=== PATIENT | male | born 1950 | race Caucasian/White ===

== ENCOUNTER 2017-03-06 08:54 | Day surgery (SDC) | payer MEDICARE, BC ==
[~2017-03-06 08:54] MED LIST: ACETAMINOPHEN 325 MG TABLET PO PRN; ACETYLCHOLINE CHLORIDE 20 DROP KIT IO PRN; BUPIVACAINE HCL/PF 30 ML VIAL IJ PRN; CYCLOPENTOLATE HCL 20 DROP BTL LEFTEYE PRN; DEXTROSE 5%-0.5 NORMAL SALINE 1,000 ML IV PRN; EPINEPHrine 1 MG/ML AMPUL IO PRN; HYALURONATE SODIUM 0.4 ML DISP.SYRIN IO PRN; HYALURONATE SODIUM 0.85 ML DISP.SYRIN IO PRN; LIDOCAINE HCL/PF 200 MG/5 ML AMPUL TP PRN; LIDOCAINE HCL/PF 5 ML VIAL IO PRN; NORMAL SALINE 3 ML BOX IV PRN; TETRACAINE HCL 150 DROP BTL OP PRN
--- OUTSIDE RECORDS SUMMARY | 2017-03-06 08:58 | XMS REPORT | Summary of Care ---
:1950 Author Organization [facility] Address [address] [place] [address] Care Team Providers Name Role Phone Orion Delvalle Primary Care Physician Encounter Date(s): 01/07/16 - 01/07/16 [facility] [address] White, [address] [facility] [place], [place] [address] Discharge Diagnosis: Arthritis, rheumatoid Discharge Disposition: Discharged to Home or Self Care Attending Physician: Paulo Boone MD Referring Physician: Orion Delvalle MD Vital Signs Most recent to oldest [Reference Range]: 1 Peripheral Pulse Rate [60-100 bpm] 95 bpm (01/07/16 2:53 PM) Blood Pressure [90-130/60-90 mmHg] 152/70mmHg *HI* (01/07/16 2:53 PM) Mean Arterial Pressure, Cuff 97 mmHg (01/07/16 2:53 PM) Most recent to oldest [Reference Range]: 1 Height/Length Measured 182.88 cm (01/07/16 2:53 PM) Weight Dosing 122.00 kg1 (01/07/16 2:55 PM) Weight Measured 122 kg (01/07/16 2:53 PM) BSA Measured 2.42 m2 (01/07/16 2:53 PM) Body Mass Index Measured 36.48 kg/m2 (01/07/16 2:53 PM) 1Result Comment: This result was because the dosing weight was either not entered or it is>30 days old. This result is based off: Weight Measured January 07, 2016 14:53:00 CDT by Marilyn Peralta Problem List No data available for this section Allergies, Adverse Reactions, Alerts No Known Allergies Medications aspirin 81 mg oral tablet 1 tab(s), Oral, Daily, # 90 tab(s), 0 Refill(s), Start Date: 08/03/15 13:22:00 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 Start Date: 08/03/15 Status: Orderedfolic acid 1 mg oral tablet 1 tab(s), Oral, Daily, # 14 tab(s), 1 Refill(s), Start Date: 01/20/16 15:36:26 CDT, Pharmacy: [place], [place] Start Date: 01/20/16 Status: Orderedfolic acid 1 mg oral tablet 1 tab(s), Oral, Daily, # 90 tab(s), 3 Refill(s), Start Date: 01/08/16 9:29:44 CDT, Pharmacy: [facility] Start Date: 01/08/16 Status: Orderedfolic acid 1 mg oral tablet 1 tab(s), Oral, Daily, # 30 tab(s), 11 Refill(s), 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: 09/07/15 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:00 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, 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: [place], [place] Start Date: 09/07/15 Stop Date: 01/07/16 Status: Completedfolic acid 1 mg oral tablet 1 tab(s), Oral, Daily, # 14 tab(s), 0 Refill(s), Start Date: 01/07/16 15:08:49 CDT, Pharmacy: [place] Start Date: 01/07/16 Stop Date: 01/20/16 Status: Completedfolic acid 1 mg oral tablet 1 tab(s), Oral, Daily, # 90 tab(s), 3 Refill(s), Start Date: 01/07/16 15:20:00 CDT, Pharmacy: [facility] Start Date: 01/07/16 Stop Date: 01/08/16 Status: CompletedHYDROcodone-acetaminophen 7.5 mg-325 mg oral tablet 1 tab(s), Oral, q4hr, PRN for pain, 0 Refill(s), Start Date: 08/03/15 13:22:00 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 Start Date: 08/03/15 Status: Orderedlevothyroxine 200 mcg (0.2 mg) oral tablet 1 tab(s), Oral, Daily, # 30 tab(s), 0 Refill(s), Start Date: 08/03/15 13:21:00 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 Start Date: 08/03/15 Status: Orderedlevothyroxine 25 mcg (0.025 mg) oral tablet 1 tab(s), Oral, Daily, # 30 tab(s), 0 Refill(s), Start Date: 08/03/15 13:21:00 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 Start Date: 08/03/15 Status: Orderedlisinopril 20 mg oral tablet 1 tab(s), Oral, Daily, # 90 tab(s), 0 Refill(s), Start Date: 08/03/15 13:21:00 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 Start Date: 08/03/15 Status: Orderedlovastatin 10 mg oral tablet 1 tab(s), Oral, Daily, # 90 tab(s), 0 Refill(s), Start Date: 08/03/15 13:23:00 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 Start Date: 08/03/15 Status: Orderedmethotrexate 2.5 mg oral tablet 8 tab(s), Oral, q7days, # 16 tab(s), 1 Refill(s), Start Date: 01/20/16 15:36:05 CDT, Pharmacy: [place] Start Date: 01/20/16 Status: Orderedmethotrexate 2.5 mg oral tablet 8 tab(s), Oral, q7days, # 104 tab(s), 0 Refill(s), Start Date: 01/08/16 9:29:23 CDT, Pharmacy: [facility] Start Date: 01/08/16 Status: Orderedmethotrexate 2.5 mg oral tablet 6 tab(s), Oral, q7days, X 120 days, # 108 tab(s), 0 Refill(s), Start Date: 09/07 11:26:00 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, Pharmacy: [place] Start Date: 09/07/15 Stop Date: 09/28/15 Status: Completedmethotrexate 2.5 mg oral tablet 8 tab(s), Oral, q7days, # 16 tab(s), 0 Refill(s), Start Date: 01/07/16 15:09:19 CDT, Pharmacy: [place] Start Date: 01/07/16 Stop Date: 01/20/16 Status: Completedmethotrexate 2.5 mg oral tablet 6 tab(s), Oral, q7days, X 90 days, # 78 tab(s), 0 Refill(s), Start Date: 16:04:46 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, Pharmacy: [place] Start Date: 09/28/15 Stop Date: 10/08/15 Status: Completedmethotrexate 2.5 mg oral tablet 8 tab(s), Oral, q7days, # 104 tab(s), 0 Refill(s), Start Date: 01/07/16 15:21: 00 CDT, Pharmacy: [facility] Start Date: 01/07/16 Stop Date: 01/08/16 Status: Completedmethotrexate 2.5 mg oral tablet 8 tab(s), Oral, q7days, X 90 days, # 104 tab(s), 0 Refill(s), Start Date: 15:34:00 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, Pharmacy: [place] Start Date: 10/08/15 Stop Date: 01/07/16 Status: Completedmultivitamin 1 tab(s), Oral, Daily, 0 Refill(s), Start Date: 08/03/15 13:22:00 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 Start Date: 08/03/15 Status: Orderedomega-3 polyunsaturated fatty acids oral capsule 1 cap(s), Oral, Daily, # 100 cap(s), 0 Refill(s), Start Date: 08/03/15 13:22:00 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 Start Date: 08/03/15 Stop Date: 09/07/15 Status: CompletedpredniSONE 10 mg oral tablet 1 tab(s), Oral, Daily, # 60 tab(s), 0 Refill(s), Start Date: 08/03/15 11:18:00 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, Pharmacy: [place] Start Date: 08/03/15 Stop Date: 09/07/15 Status: CompletedpredniSONE 5 mg oral tablet 1 tab(s), Oral, Daily, # 30 tab(s), 1 Refill(s), Start Date: 09/07/15 11:27:00 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, Pharmacy: [place] Start Date: 09/07/15 Stop Date: 10/08/15 Status: CompletedpredniSONE 5 mg oral tablet 1 tab(s), Oral, Daily, # 30 tab(s), 1 Refill(s), Start Date: 01/20/16 15:34:57 CDT, Pharmacy: [place] Start Date: 01/20/16 Status: OrderedpredniSONE 5 mg oral tablet 1 tab(s), Oral, Daily, # 14 tab(s), 1 Refill(s), Start Date: 01/07/16 15:41:38 CDT, Pharmacy: [place] Start Date: 01/07/16 Stop Date: 01/20/16 Status: CompletedpredniSONE 5 mg oral tablet 1 tab(s), Oral, Daily, # 30 tab(s), 1 Refill(s), Start Date: 10/08/15 15:34:27 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, Pharmacy: [place] Start Date: 10/08/15 Stop Date: 01/07/16 Status: CompletedTriCor 145 mg oral tablet 1 tab(s), Oral, Daily, # 30 tab(s), 0 Refill(s), Start Date: 08/03/15 13:21:00 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 Start Date: 08/03/15 Status: Ordered Results No data available for this section Immunizations No data available for this section Procedures No data available for this section Social History No data available for this section Assessment and Plan No data available for this section
--- OUTSIDE RECORDS SUMMARY | 2017-03-06 08:58 | XMS REPORT | Summary of Care ---
:1950 Author Organization [facility] Address [address] [place] [address] Care Team Providers Name Role Phone Orion Delvalle Primary Care Physician Encounter Date(s): 01/07/16 - 01/07/16 [facility] [address], [address] [facility] [place], [place] [address] Discharge Diagnosis: Arthritis, rheumatoid Discharge Disposition: [...] tab(s), 0 Refill(s), Start Date: 08/03/15 13:22:00 [employer]LE PET [employer] Start Date: 08/03/15 Status: Orderedfolic acid 1 mg oral tablet 1 tab(s), Oral, Daily, # 14 tab(s), 1 Refill(s), Start Date: 01/20/16 15:36:26 CDT, Pharmacy: [place], [place] Start Date: 01/20/16 Status: Orderedfolic acid 1 mg oral tablet 1 tab(s), Oral, Daily, # 90 tab(s), 3 Refill(s), Start Date: 01/08/16 9:29:44 CDT, Pharmacy: [facility] Start Date: 01/08/16 Status: Orderedfolic acid 1 mg oral tablet 1 tab(s), Oral, Daily, # 30 tab(s), 11 Refill(s), Start Date: 09/07/15 11:26:00 [employer]LE [employer], Pharmacy: [place], [place] Start Date: 09/07/15 Stop Date: 01/07/16 Status: Completedfolic acid 1 mg oral tablet 1 tab(s), Oral, Daily, # 14 tab(s), 0 Refill(s), Start Date: 01/07/16 15:08:49 CDT, Pharmacy: [place], [place] Start Date: 01/07/16 Stop Date: 01/20/16 Status: Completedfolic acid 1 mg oral tablet 1 tab(s), Oral, Daily, # 90 tab(s), 3 Refill(s), Start Date: 01/07/16 15:20:00 CDT, Pharmacy: [facility] Start Date: 01/07/16 Stop Date: 01/08/16 Status: CompletedHYDROcodone-acetaminophen 7.5 mg-325 mg oral tablet 1 tab(s), Oral, q4hr, PRN for pain, 0 Refill(s), Start Date: 08/03/15 13:22:00 [employer] Start Date: 08/03/15 Status: Orderedlevothyroxine 200 mcg (0.2 mg) oral tablet 1 tab(s), Oral, Daily, # 30 tab(s), 0 Refill(s), Start Date: 08/03/15 13:21:00 [employer] Start Date: 08/03/15 Status: Orderedlevothyroxine 25 mcg (0.025 mg) oral tablet 1 tab(s), Oral, Daily, # 30 tab(s), 0 Refill(s), Start Date: 08/03/15 13:21:00 [employer] Start Date: 08/03/15 Status: Orderedlisinopril 20 mg oral tablet 1 tab(s), Oral, Daily, # 90 tab(s), 0 Refill(s), Start Date: 08/03/15 13:21:00 [employer]LE [employer] Start Date: 08/03/15 Status: Orderedlovastatin 10 mg oral tablet 1 tab(s), Oral, Daily, # 90 tab(s), 0 Refill(s), Start Date: 08/03/15 13:23:00 MOBILE [employer] Start Date: 08/03/15 Status: Orderedmethotrexate 2.5 mg oral tablet 8 tab(s), Oral, q7days, # 16 tab(s), 1 Refill(s), Start Date: 01/20/16 15:36:05 CDT, Pharmacy: [place], [place] Start Date: 01/20/16 Status: Orderedmethotrexate 2.5 mg oral tablet 8 tab(s), Oral, q7days, # 104 tab(s), 0 Refill(s), Start Date: 01/08/16 9:29:23 CDT, Pharmacy: [facility] Start Date: 01/08/16 Status: Orderedmethotrexate 2.5 mg oral tablet 6 tab(s), Oral, q7days, X 120 days, # 108 tab(s), 0 Refill(s), Start Date: 09/07 11:26:00 MOBILE PET [employer], Pharmacy: [place] Start Date: 09/07/15 Stop Date: 09/28/15 Status: Completedmethotrexate 2.5 mg oral tablet 8 tab(s), Oral, q7days, # 16 tab(s), 0 Refill(s), Start Date: 01/07/16 15:09:19 CDT, Pharmacy: [place] Start Date: 01/07/16 Stop Date: 01/20/16 Status: Completedmethotrexate 2.5 mg oral tablet 6 tab(s), Oral, q7days, X 90 days, # 78 tab(s), 0 Refill(s), Start Date: 16:04:46 MOBILE PET [employer]ER, Pharmacy: [place] Start Date: 09/28/15 Stop Date: 10/08/15 Status: Completedmethotrexate 2.5 mg oral tablet 8 tab(s), Oral, q7days, # 104 tab(s), 0 Refill(s), Start Date: 01/07/16 15:21: 00 CDT, Pharmacy: [facility] Start Date: 01/07/16 Stop Date: 01/08/16 Status: Completedmethotrexate 2.5 mg oral tablet 8 tab(s), Oral, q7days, X 90 days, # 104 tab(s), 0 Refill(s), Start Date: 15:34:00 MOBILE [employer], Pharmacy: [place] Start Date: 10/08/15 Stop Date: 01/07/16 Status: Completedmultivitamin 1 tab(s), Oral, Daily, 0 Refill(s), Start Date: 08/03/15 13:22:00 [employer] Start Date: 08/03/15 Status: Orderedomega-3 polyunsaturated fatty acids oral capsule 1 cap(s), Oral, Daily, # 100 cap(s), 0 Refill(s), Start Date: 08/03/15 13:22:00 [employer] Start Date: 08/03/15 Stop Date: 09/07/15 Status: CompletedpredniSONE 10 mg oral tablet 1 tab(s), Oral, Daily, # 60 tab(s), 0 Refill(s), Start Date: 08/03/15 11:18:00 MOBILE PET [employer], Pharmacy: [place] Start Date: 08/03/15 Stop Date: 09/07/15 Status: CompletedpredniSONE 5 mg oral tablet 1 tab(s), Oral, Daily, # 30 tab(s), 1 Refill(s), Start Date: 09/07/15 11:27:00 MOBILE PET [employer]ER, Pharmacy: [place] Start Date: 09/07/15 Stop Date: 10/08/15 Status: CompletedpredniSONE 5 mg oral tablet 1 tab(s), Oral, Daily, # 30 tab(s), 1 Refill(s), Start Date: 01/20/16 15:34:57 CDT, Pharmacy: [place] Start Date: 01/20/16 Status: OrderedpredniSONE 5 mg oral tablet 1 tab(s), Oral, Daily, # 14 tab(s), 1 Refill(s), Start Date: 01/07/16 15:41:38 CDT, Pharmacy: [place] Start Date: 01/07/16 Stop Date: 01/20/16 Status: CompletedpredniSONE 5 mg oral tablet 1 tab(s), Oral, Daily, # 30 tab(s), 1 Refill(s), Start Date: 10/08/15 15:34:27 MOBILE PET [employer], Pharmacy: [place] Start Date: 10/08/15 Stop Date: 01/07/16 Status: CompletedTriCor 145 mg oral tablet 1 tab(s), Oral, Daily, # 30 tab(s), 0 Refill(s), Start Date: 08/03/15 13:21:00 MOBILE PET [employer] Start Date: 08/03/15 Status: Ordered Results No data available for this section Immunizations No data available for this section Procedures No data available for this section Social History No data available for this section Assessment and Plan No data available for this section
--- OUTSIDE RECORDS SUMMARY | 2017-03-06 08:59 | XMS REPORT | Summary of Care ---
:1950 Author Organization [facility] Address [address] [place] [address] Care Team Providers Name Role Phone MookOrion Primary Care Physician Encounter Date(s): 01/07/16 - 01/07/16 [facility] [address] [place], [place] [address] Final: Rheumatoid arthritis, unspecified Discharge Disposition: Discharged to Home or Self Care Attending Physician: Paulo Boone MD Admitting Physician: Paulo Boone MD Vital Signs No data available for this section Problem List No data available for this section Allergies, Adverse Reactions, Alerts No Known Allergies Medications aspirin 81 mg oral tablet 1 tab(s), Oral, Daily, # 90 tab(s), 0 Refill(s), Start Date: 08/03/15 13:22:00 [employer]IP Start Date: 08/03/15 Status: Orderedfolic acid 1 mg oral tablet 1 tab(s), Oral, Daily, # 14 tab(s), 1 Refill(s), Start Date: 01/20/16 15:36:26 CDT, Pharmacy: [place], [place] Start Date: 01/20/16 Status: Orderedfolic acid 1 mg oral tablet 1 tab(s), Oral, Daily, # 90 tab(s), 3 Refill(s), Start Date: 01/08/16 9:29:44 CDT, Pharmacy: Pharmacy Start Date: 01/08/16 Status: Orderedfolic acid 1 mg oral tablet 1 tab(s), Oral, Daily, # 30 tab(s), 11 Refill(s), Start Date: 09/07/15 11:26:00 [employer]IP, Pharmacy: [place], [place] Start Date: 09/07/15 Stop Date: 01/07/16 Status: Completedfolic acid 1 mg oral tablet 1 tab(s), Oral, Daily, # 14 tab(s), 0 Refill(s), Start Date: 01/07/16 15:08:49 CDT, Pharmacy: [facility] [place], [place] Start Date: 01/07/16 Stop Date: 01/20/16 Status: Completedfolic acid 1 mg oral tablet 1 tab(s), Oral, Daily, # 90 tab(s), 3 Refill(s), Start Date: 01/07/16 15:20:00 CDT, Pharmacy: [facility] Start Date: 01/07/16 Stop Date: 01/08/16 Status: CompletedHYDROcodone-acetaminophen 7.5 mg-325 mg oral tablet 1 tab(s), Oral, q4hr, PRN for pain, 0 Refill(s), Start Date: 08/03/15 13:22:00 [employer] Start Date: 08/03/15 Status: Orderedlevothyroxine 200 mcg (0.2 mg) oral tablet 1 tab(s), Oral, Daily, # 30 tab(s), 0 Refill(s), Start Date: 08/03/15 13:21:00 [employer] Start Date: 08/03/15 Status: Orderedlevothyroxine 25 mcg (0.025 mg) oral tablet 1 tab(s), Oral, Daily, # 30 tab(s), 0 Refill(s), Start Date: 08/03/15 13:21:00 [employer] Start Date: 08/03/15 Status: Orderedlisinopril 20 mg oral tablet 1 tab(s), Oral, Daily, # 90 tab(s), 0 Refill(s), Start Date: 08/03/15 13:21:00 [employer] Start Date: 08/03/15 Status: Orderedlovastatin 10 mg oral tablet 1 tab(s), Oral, Daily, # 90 tab(s), 0 Refill(s), Start Date: 08/03/15 13:23:00 [employer] Start Date: 08/03/15 Status: Orderedmethotrexate 2.5 mg oral tablet 8 tab(s), Oral, q7days, # 16 tab(s), 1 Refill(s), Start Date: 01/20/16 15:36:05 CDT, Pharmacy: [facility] [place] Start Date: 01/20/16 Status: Orderedmethotrexate 2.5 mg oral tablet 8 tab(s), Oral, q7days, # 104 tab(s), 0 Refill(s), Start Date: 01/08/16 9:29:23 CDT, Pharmacy: Pharmacy Start Date: 01/08/16 Status: Orderedmethotrexate 2.5 mg oral tablet 6 tab(s), Oral, q7days, X 120 days, # 108 tab(s), 0 Refill(s), Start Date: 09/07 11:26:00 [employer], Pharmacy: [facility] [place] Start Date: 09/07/15 Stop Date: 09/28/15 Status: Completedmethotrexate 2.5 mg oral tablet 8 tab(s), Oral, q7days, # 16 tab(s), 0 Refill(s), Start Date: 01/07/16 15:09:19 CDT, Pharmacy: [facility] [place] Start Date: 01/07/16 Stop Date: 01/20/16 Status: Completedmethotrexate 2.5 mg oral tablet 6 tab(s), Oral, q7days, X 90 days, # 78 tab(s), 0 Refill(s), Start Date: 16:04:46 [employer], Pharmacy: [facility] [place] Start Date: 09/28/15 Stop Date: 10/08/15 Status: Completedmethotrexate 2.5 mg oral tablet 8 tab(s), Oral, q7days, # 104 tab(s), 0 Refill(s), Start Date: 01/07/16 15:21: 00 CDT, Pharmacy: [facility] Start Date: 01/07/16 Stop Date: 01/08/16 Status: Completedmethotrexate 2.5 mg oral tablet 8 tab(s), Oral, q7days, X 90 days, # 104 tab(s), 0 Refill(s), Start Date: 15:34:00 [employer], Pharmacy: [facility] [place] Start Date: 10/08/15 Stop Date: 01/07/16 Status: Completedmultivitamin 1 tab(s), Oral, Daily, 0 Refill(s), Start Date: 08/03/15 13:22:00 [employer] Start Date: 08/03/15 Status: Orderedomega-3 polyunsaturated fatty acids oral capsule 1 cap(s), Oral, Daily, # 100 cap(s), 0 Refill(s), Start Date: 08/03/15 13:22:00 [employer] Start Date: 08/03/15 Stop Date: 09/07/15 Status: CompletedpredniSONE 10 mg oral tablet 1 tab(s), Oral, Daily, # 60 tab(s), 0 Refill(s), Start Date: 08/03/15 11:18:00 BR[employer], Pharmacy: [place], [place] Start Date: 08/03/15 Stop Date: 09/07/15 Status: CompletedpredniSONE 5 mg oral tablet 1 tab(s), Oral, Daily, # 30 tab(s), 1 Refill(s), Start Date: 09/07/15 11:27:00 BR[employer], Pharmacy: [place], [place] Start Date: 09/07/15 Stop Date: 10/08/15 Status: CompletedpredniSONE 5 mg oral tablet 1 tab(s), Oral, Daily, # 30 tab(s), 1 Refill(s), Start Date: 01/20/16 15:34:57 CDT, Pharmacy: [facility] [place] Start Date: 01/20/16 Status: OrderedpredniSONE 5 mg oral tablet 1 tab(s), Oral, Daily, # 14 tab(s), 1 Refill(s), Start Date: 01/07/16 15:41:38 CDT, Pharmacy: [place], [place] Start Date: 01/07/16 Stop Date: 01/20/16 Status: CompletedpredniSONE 5 mg oral tablet 1 tab(s), Oral, Daily, # 30 tab(s), 1 Refill(s), Start Date: 10/08/15 15:34:27 BR[employer]GE [employer]ATOR [employer]IP, Pharmacy: [place], [place] Start Date: 10/08/15 Stop Date: 01/07/16 Status: CompletedTriCor 145 mg oral tablet 1 tab(s), Oral, Daily, # 30 tab(s), 0 Refill(s), Start Date: 08/03/15 13:21:00 [employer] Start Date: 08/03/15 Status: Ordered Results Patient Viewable Results Most recent to oldest [Reference Range]: 1 WBC [4.8-10.8 thou/mm3] 4.5 thou/mm3 *LOW* (01/07/16 3: PM) RBC [4.60-6.00 Mil/mm3] 4.46 Mil/mm3 *LOW* (01/07/16 3: PM) Hgb [14.0-18.0 g/dL] 13.3 g/dL *LOW* (01/07/16: PM) Hct [42.0-52.0 %] 40.0 % *LOW* (01/07/16 3: PM) MCV [80.0-94.0 fL] 89.7 fL (01/07/16 3: PM) MCH [25.0-38.0 pg/cell] 29.8 pg/cell (01/07/16 3: PM) MCHC [31.0-37.0 g/dL] 33.3 g/dL (01/07/16 3: PM) RDW [1.0-48.0 fL] 44.7 fL (01/07/16 3:26 PM) Platelet [130-400 thou/mm3] 200 thou/mm3 (01/07/16 3:26 PM) Sed Rate [0-20 mm/hr] 28 mm/hr *HI* (01/07/16 3: PM) Creatinine Lvl [0.50-1.20 mg/dL] 1.25 mg/dL *HI* (01/07/16 3:26 PM) eGFR AA [>=60] >60 (01/07/16 3: PM) eGFR JYOTI [>=60] 58 *LOW* (01/07/16 3: PM) Albumin Lvl [3.5-5.2 g/dL] 4.6 g/dL (01/07/16 3:26 PM) AST [0-39 unit/L] 34 unit/L (01/07/16 3:26 PM) ALT [0-40 unit/L] 38 unit/L (01/07/16 3:26 PM) C Reactive Protein [0.0-0.4 mg/dL] 0.7 mg/dL *HI* (01/07/16 3:26 PM) Estimated Creatinine Clearance 79.47 mL/min (01/07/16 5:07 PM) Immunizations No data available for this section Procedures No data available for this section Social History No data available for this section Assessment and Plan No data available for this section
--- OUTSIDE RECORDS SUMMARY | 2017-03-06 08:59 | XMS REPORT | Summary of Care ---
:1950 Author Organization [facility] Care Team Providers Name Role Phone Mook, Orion Primary Care Physician Encounter Date(s): 12/29/16 - 12/29/[address] [id number] Discharge Disposition: Discharged to Home or Self Care Attending Physician: Paulo Boone MD Admitting Physician: Paulo Boone MD Vital Signs No data available for this section Problem List No data available for this section Allergies, Adverse Reactions, Alerts No Known Allergies Medications aspirin 81 mg oral tablet 1 tab(s), Oral, Daily, # 90 tab(s), 0 Refill(s), Start Date: 08/03/15 13:22:00 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 Start Date: 08/03/15 Status: Orderedfolic acid 1 mg oral tablet 1 tab(s), Oral, Daily, # 14 tab(s), 1 Refill(s), Start Date: 01/20/16 15:36:26 CDT, Pharmacy: [place], [place] Start Date: 01/20/16 Stop Date: 04/11/16 Status: Completedfolic acid 1 mg oral tablet 1 tab(s), Oral, Daily, # 90 tab(s), 3 Refill(s), Start Date: 04/11/16 16:03:55 CDT, [facility] Start Date: 04/11/16 Stop Date: 08/01/16 Status: Completedfolic acid 1 mg oral tablet 1 tab(s), Oral, Daily, # 90 tab(s), 3 Refill(s), Start Date: 01/08/16 9:29:44 CDT, [facility]: [facility] Start Date: 01/08/16 Stop Date: 04/11/16 Status: Completedfolic acid 1 mg oral tablet 1 tab(s), Oral, Daily, # 30 tab(s), 11 Refill(s), Start Date: 09/07/15 11:26:00 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, Pharmacy: [place], [place] Start Date: 09/07/15 Stop Date: 01/07/16 Status: Completedfolic acid 1 mg oral tablet 2 tab(s), Oral, Daily, Increase, # 180 tab(s), 3 Refill(s), Start Date: 15:49:39 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, Pharmacy: Pharmacy Special Instructions: Increase Start Date: 10/11/16 Stop Date: 12/29/16 Status: Completedfolic acid 1 mg oral tablet 1 tab(s), Oral, Daily, # 90 tab(s), 3 Refill(s), Start Date: 08/01/16 14:05:09 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, Pharmacy: Pharmacy Start Date: 08/01/16 Stop Date: 10/11/16 Status: Completedfolic acid 1 mg oral tablet 1 tab(s), Oral, Daily, # 14 tab(s), 0 Refill(s), Start Date: 01/07/16 15:08:49 CDT, Pharmacy: [place], [place] Start Date: 01/07/16 Stop Date: 01/20/16 Status: Completedfolic acid 1 mg oral tablet 2 tab(s), Oral, Daily, Increase, # 180 tab(s), 3 Refill(s), Start Date: 14:42:07 CDT, Pharmacy: Pharmacy Special Instructions: Increase Start Date: 12/29/16 Status: Orderedfolic acid 1 mg oral tablet 1 tab(s), Oral, Daily, # 90 tab(s), 3 Refill(s), Start Date: 10/11/16 14:18:37 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, Pharmacy: Pharmacy Start Date: 10/11/16 Stop Date: 10/11/16 Status: Completedfolic acid 1 mg oral tablet 1 tab(s), Oral, Daily, # 90 tab(s), 3 Refill(s), Start Date: 01/07/16 15:20:00 CDT, Pharmacy: [facility] Start Date: 01/07/16 Stop Date: 01/08/16 Status: CompletedHYDROcodone-acetaminophen 7.5 mg-325 mg oral tablet 1 tab(s), Oral, q4hr, PRN for pain, 0 Refill(s), Start Date: 08/03/15 13:22:00 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 Start Date: 08/03/15 Stop Date: 12/29/16 Status: Completedlevothyroxine 200 mcg (0.2 mg) oral tablet 1 tab(s), Oral, Daily, # 30 tab(s), 0 Refill(s), Start Date: 08/03/15 13:21:00 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 Start Date: 08/03/15 Status: Orderedlevothyroxine 25 mcg (0.025 mg) oral tablet 1 tab(s), Oral, Daily, # 30 tab(s), 0 Refill(s), Start Date: 08/03/15 13:21:00 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 Start Date: 08/03/15 Stop Date: 12/29/16 Status: Completedlisinopril 20 mg oral tablet 1 tab(s), Oral, Daily, # 90 tab(s), 0 Refill(s), Start Date: 08/03/15 13:21:00 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 Start Date: 08/03/15 Status: Orderedlovastatin 10 mg oral tablet 1 tab(s), Oral, Daily, # 90 tab(s), 0 Refill(s), Start Date: 08/03/15 13:23:00 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 Start Date: 08/03/15 Status: Orderedmethotrexate 2.5 mg oral tablet 8 tab(s), Oral, q7days, # 16 tab(s), 1 Refill(s), Start Date: 01/20/16 15:36:05 CDT, Pharmacy: [place] Start Date: 01/20/16 Stop Date: 04/11/16 Status: Completedmethotrexate 2.5 mg oral tablet 8 tab(s), Oral, q7days, # 104 tab(s), 1 Refill(s), Start Date: 04/11/16 16:03: 54 CDT, Pharmacy: Pharmacy Start Date: 04/11/16 Stop Date: 08/01/16 Status: Completedmethotrexate 2.5 mg oral tablet 8 tab(s), Oral, q7days, # 104 tab(s), 0 Refill(s), Start Date: 01/08/16 9:29:23 CDT, Pharmacy: Pharmacy Start Date: 01/08/16 Stop Date: 04/11/16 Status: Completedmethotrexate 2.5 mg oral tablet 6 tab(s), Oral, q7days, X 120 days, # 108 tab(s), 0 Refill(s), Start Date: 09/07 11:26:00 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, Pharmacy: [place] Start Date: 09/07/15 Stop Date: 09/28/15 Status: Completedmethotrexate 2.5 mg oral tablet 8 tab(s), Oral, q7days, # 104 tab(s), 1 Refill(s), Start Date: 08/01/16 14:05: 09 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, Pharmacy: Pharmacy Start Date: 08/01/16 Stop Date: 10/11/16 Status: Completedmethotrexate 2.5 mg oral tablet 8 tab(s), Oral, q7days, # 16 tab(s), 0 Refill(s), Start Date: 01/07/16 15:09:19 CDT, Pharmacy: [place] Start Date: 01/07/16 Stop Date: 01/20/16 Status: Completedmethotrexate 2.5 mg oral tablet 6 tab(s), Oral, q7days, X 90 days, # 78 tab(s), 0 Refill(s), Start Date: 16:04:46 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, Pharmacy: [place] Start Date: 09/28/15 Stop Date: 10/08/15 Status: Completedmethotrexate 2.5 mg oral tablet 8 tab(s), Oral, q7days, # 104 tab(s), 1 Refill(s), Start Date: 12/29/16 14:42: 06 CDT, Pharmacy: Pharmacy Start Date: 12/29/16 Status: Orderedmethotrexate 2.5 mg oral tablet 8 tab(s), Oral, q7days, # 104 tab(s), 1 Refill(s), Start Date: 10/11/16 14:18: 36 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, Pharmacy: Pharmacy Start Date: 10/11/16 Stop Date: 12/29/16 Status: Completedmethotrexate 2.5 mg oral tablet 8 tab(s), Oral, q7days, # 104 tab(s), 0 Refill(s), Start Date: 01/07/16 15:21: 00 CDT, Pharmacy: [facility] Start Date: 01/07/16 Stop Date: 01/08/16 Status: Completedmethotrexate 2.5 mg oral tablet 8 tab(s), Oral, q7days, X 90 days, # 104 tab(s), 0 Refill(s), Start Date: 15:34:00 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, Pharmacy: [place] Start Date: 10/08/15 Stop Date: 01/07/16 Status: Completedmultivitamin 1 tab(s), Oral, Daily, 0 Refill(s), Start Date: 08/03/15 13:22:00 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 Start Date: 08/03/15 Stop Date: 12/29/16 Status: Completedomega-3 polyunsaturated fatty acids oral capsule 1 cap(s), Oral, Daily, # 100 cap(s), 0 Refill(s), Start Date: 08/03/15 13:22:00 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 Start Date: 08/03/15 Stop Date: 09/07/15 Status: CompletedPlaquenil Sulfate 200 mg oral tablet 1 tab(s), Oral, BID, # 60 tab(s), 1 Refill(s), Start Date: 07/11/16 14:38:00 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 , Pharmacy: [place] Start Date: 07/11/16 Stop Date: 07/21/16 Status: CompletedPlaquenil Sulfate 200 mg oral tablet 1 tab(s), Oral, BID, # 180 tab(s), 0 Refill(s), Start Date: 12/29/16 14:42:07 CDT, Pharmacy: Pharmacy Start Date: 12/29/16 Status: OrderedPlaquenil Sulfate 200 mg oral tablet 1 tab(s), Oral, BID, # 180 tab(s), 0 Refill(s), Start Date: 10/11/16 14:18:38 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, Pharmacy: Pharmacy Start Date: 10/11/16 Stop Date: 12/29/16 Status: CompletedPlaquenil Sulfate 200 mg oral tablet 1 tab(s), Oral, BID, # 180 tab(s), 0 Refill(s), Start Date: 07/21/16 9:00:34 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 , Pharmacy: Pharmacy Start Date: 07/21/16 Stop Date: 10/11/16 Status: CompletedpredniSONE 10 mg oral tablet 1 tab(s), Oral, Daily, # 60 tab(s), 0 Refill(s), Start Date: 08/03/15 11:18:00 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, Pharmacy: [place] Start Date: 08/03/15 Stop Date: 09/07/15 Status: CompletedpredniSONE 2.5 mg oral tablet 1 tab(s), Oral, Daily, 0 Refill(s), Start Date: 10/11/16 13:48:00 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 Start Date: 10/11/16 Stop Date: 10/11/16 Status: DiscontinuedpredniSONE 2.5 mg oral tablet See Instructions, Take 2 tabs daily for 30 days, then 1 tab daily thereafter., # 120 tab(s), 0 Refill(s), Start Date: 12/29/16 14:42:00 CDT, Pharmacy: Pharmacy Special Instructions: Take 2 tabs daily for 30 days, then 1 tab daily thereafter. Start Date: 12/29/16 Status: OrderedpredniSONE 5 mg oral tablet 1 tab(s), Oral, Daily, # 90 tab(s), 1 Refill(s), Start Date: 04/11/16 16:03:53 CDT, Pharmacy: Pharmacy Start Date: 04/11/16 Stop Date: 07/11/16 Status: CompletedpredniSONE 5 mg oral tablet 1 tab(s), Oral, Daily, # 30 tab(s), 1 Refill(s), Start Date: 09/07/15 11:27:00 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, Pharmacy: [place] Start Date: 09/07/15 Stop Date: 10/08/15 Status: CompletedpredniSONE 5 mg oral tablet 1 tab(s), Oral, Daily, # 30 tab(s), 1 Refill(s), Start Date: 01/20/16 15:34:57 CDT, Pharmacy: [place] Start Date: 01/20/16 Stop Date: 04/11/16 Status: CompletedpredniSONE 5 mg oral tablet 1 tab(s), Oral, Daily, # 14 tab(s), 1 Refill(s), Start Date: 01/07/16 15:41:38 CDT, Pharmacy: [place] Start Date: 01/07/16 Stop Date: 01/20/16 Status: CompletedpredniSONE 5 mg oral tablet 1 tab(s), Oral, Daily, # 30 tab(s), 1 Refill(s), Start Date: 10/08/15 15:34:27 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, Pharmacy: [place] Start Date: 10/08/15 Stop Date: 01/07/16 Status: CompletedTriCor 145 mg oral tablet 1 tab(s), Oral, Daily, # 30 tab(s), 0 Refill(s), Start Date: 08/03/15 13:21:00 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 Start Date: 08/03/15 Status: OrderedViagra 100 mg oral tablet 1 tab(s), Oral, Daily, PRN for erectile dysfunction, 0 Refill(s), Start Date: 13:47:00 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 Start Date: 10/11/16 Status: Ordered Results Patient Viewable Results Most recent to oldest [Reference Range]: 1 WBC [4.8-10.8 thou/mm3] 5.1 thou/mm3 (12/29/16 2:40 PM) RBC [4.60-6.00 Mil/mm3] 4.35 Mil/mm3 *LOW* (12/29/16 2:40 PM) Hgb [14.0-18.0 g/dL] 13.3 g/dL *LOW* (12/29/16 2:40 PM) Hct [42.0-52.0 %] 39.6 % *LOW* (12/29/16 2:40 PM) MCV [80.0-94.0 fL] 91.0 fL (12/29/16 2:40 PM) MCH [25.0-38.0 pg/cell] 30.6 pg/cell (12/29/16 2:40 PM) MCHC [31.0-37.0 g/dL] 33.6 g/dL (12/29/16 2:40 PM) RDW [1.0-48.0 fL] 44.1 fL (12/29/16 2:40 PM) Platelet [130-400 thou/mm3] 196 thou/mm3 (12/29/16 2:40 PM) Neutrophils % Auto [50.0-75.0 %] 61.4 % (12/29/16 2:40 PM) Immature Granulocyte Auto [0.1-2.0 %] 1.2 % (12/29/16 2:40 PM) Lymphocytes % Auto [15.0-41.0 %] 23.3 % (12/29/16 2:40 PM) Monocytes % Auto [2.0-10.0 %] 10.2 % *HI* (12/29/16 2:40 PM) Eosinophils % Auto [0.0-6.0 %] 3.7 % (12/29/16 2:40 PM) Basophil % Auto [0.0-1.0 %] 0.2 % (12/29/16 2:40 PM) Neutrophils Absolute [1.5-5.9 thou/mm3] 3.1 thou/mm3 (12/29/16 2:40 PM) Immature Gran Absolute [0.01-0.03 thou/mm3] 0.06 thou/mm3 *HI* (12/29/16 2:40 PM) Lymphocytes Absolute [1.5-4.0 thou/mm3] 1.2 thou/mm3 *LOW* (12/29/16 2:40 PM) Monocytes Absolute [0.0-0.9 thou/mm3] 0.5 thou/mm3 (12/29/16 2:40 PM) Eosinophil Absolute [0.0-0.7 thou/mm3] 0.2 thou/mm3 (12/29/16 2:40 PM) Basophil Absolute [0.0-0.2 thou/mm3] 0.0 thou/mm3 (12/29/16 2:40 PM) Sed Rate [0-20 mm/hr] 17 mm/hr (12/29/16 2:40 PM) Creatinine Lvl [0.50-1.20 mg/dL] 0.98 mg/dL (12/29/16 2:40 PM) eGFR AA [>=60] >60 (12/29/16 2:40 PM) eGFR JYOTI [>=60] >60 (12/29/16 2:40 PM) Albumin Lvl [3.5-5.2 g/dL] 4.3 g/dL (12/29/16 2:40 PM) AST [0-39 unit/L] 23 unit/L (12/29/16 2:40 PM) ALT [0-40 unit/L] 27 unit/L (12/29/16 2:40 PM) C Reactive Protein [0.0-0.4 mg/dL] 0.6 mg/dL *HI* (12/29/16 2:40 PM) Estimated Creatinine Clearance 100.97 mL/min (12/29/16 4:55 PM) Immunizations No data available for this section Procedures No data available for this section Social History No data available for this section Assessment and Plan No data available for this section
--- OUTSIDE RECORDS SUMMARY | 2017-03-06 08:59 | XMS REPORT | Summary of Care ---
:1950 Author Organization [facility] Address [address] [place] [id number]- Care Team Providers Name Role Phone MookOrion Primary Care Physician Encounter Date(s): 10/11/16 - 10/11/[address] [address] Discharge Disposition: 01 Discharged to Home or Self Care Attending Physician: Paulo Boone MD Admitting Physician: Paulo Boone MD Vital Signs No data available for this section Problem List No data available for this section Allergies, Adverse Reactions, Alerts No Known Allergies Medications aspirin 81 mg oral tablet 1 tab(s), Oral, Daily, # 90 tab(s), 0 Refill(s), Start Date: 08/03/15 13:22:00 EDUCATIONAL MANAGER Start Date: 08/03/15 Status: Orderedfolic acid 1 mg oral tablet 1 tab(s), Oral, Daily, # 14 tab(s), 1 Refill(s), Start Date: 01/20/16 15:36:26 CDT, Pharmacy: [place] Start Date: 01/20/16 Stop Date: 04/11/16 Status: Completedfolic acid 1 mg oral tablet 1 tab(s), Oral, Daily, # 90 tab(s), 3 Refill(s), Start Date: 04/11/16 16:03:55 CDT, Pharmacy: [facility] Start Date: 04/11/16 Stop Date: 08/01/16 Status: Completedfolic acid 1 mg oral tablet 1 tab(s), Oral, Daily, # 90 tab(s), 3 Refill(s), Start Date: 01/08/16 9:29:44 CDT, Pharmacy: [facility] Start Date: 01/08/16 Stop Date: 04/11/16 Status: Completedfolic acid 1 mg oral tablet 1 tab(s), Oral, Daily, # 30 tab(s), 11 Refill(s), Start Date: 09/07/15 11:26:00 EDUCATIONAL MANAGER, Pharmacy: [place] Start Date: 09/07/15 Stop Date: 01/07/16 Status: Completedfolic acid 1 mg oral tablet 2 tab(s), Oral, Daily, Increase, # 180 tab(s), 3 Refill(s), Start Date: 15:49:39 EDUCATIONAL MANAGER, Pharmacy: [facility] Special Instructions: Increase Start Date: 10/11/16 Status: Orderedfolic acid 1 mg oral tablet 1 tab(s), Oral, Daily, # 90 tab(s), 3 Refill(s), Start Date: 08/01/16 14:05:09 EDUCATIONAL MANAGER, Pharmacy: [facility] Start Date: 08/01/16 Stop Date: 10/11/16 Status: Completedfolic acid 1 mg oral tablet 1 tab(s), Oral, Daily, # 14 tab(s), 0 Refill(s), Start Date: 01/07/16 15:08:49 CDT, Pharmacy: [place] Start Date: 01/07/16 Stop Date: 01/20/16 Status: Completedfolic acid 1 mg oral tablet 1 tab(s), Oral, Daily, # 90 tab(s), 3 Refill(s), Start Date: 10/11/16 14:18:37 EDUCATIONAL MANAGER, Pharmacy: [facility] Start Date: 10/11/16 Stop Date: 10/11/16 Status: Completedfolic acid 1 mg oral tablet 1 tab(s), Oral, Daily, # 90 tab(s), 3 Refill(s), Start Date: 01/07/16 15:20:00 CDT, Pharmacy: [facility] Start Date: 01/07/16 Stop Date: 01/08/16 Status: CompletedHYDROcodone-acetaminophen 7.5 mg-325 mg oral tablet 1 tab(s), Oral, q4hr, PRN for pain, 0 Refill(s), Start Date: 08/03/15 13:22:00 EDUCATIONAL MANAGER Start Date: 08/03/15 Status: Orderedlevothyroxine 200 mcg (0.2 mg) oral tablet 1 tab(s), Oral, Daily, # 30 tab(s), 0 Refill(s), Start Date: 08/03/15 13:21:00 EDUCATIONAL MANAGER Start Date: 08/03/15 Status: Orderedlevothyroxine 25 mcg (0.025 mg) oral tablet 1 tab(s), Oral, Daily, # 30 tab(s), 0 Refill(s), Start Date: 08/03/15 13:21:00 EDUCATIONAL MANAGER Start Date: 08/03/15 Status: Orderedlisinopril 20 mg oral tablet 1 tab(s), Oral, Daily, # 90 tab(s), 0 Refill(s), Start Date: 08/03/15 13:21:00 EDUCATIONAL MANAGER Start Date: 08/03/15 Status: Orderedlovastatin 10 mg oral tablet 1 tab(s), Oral, Daily, # 90 tab(s), 0 Refill(s), Start Date: 08/03/15 13:23:00 EDUCATIONAL MANAGER Start Date: 08/03/15 Status: Orderedmethotrexate 2.5 mg oral tablet 8 tab(s), Oral, q7days, # 16 tab(s), 1 Refill(s), Start Date: 01/20/16 15:36:05 CDT, Pharmacy: [place] Start Date: 01/20/16 Stop Date: 04/11/16 Status: Completedmethotrexate 2.5 mg oral tablet 8 tab(s), Oral, q7days, # 104 tab(s), 1 Refill(s), Start Date: 04/11/16 16:03: 54 CDT, Pharmacy: [facility] Start Date: 04/11/16 Stop Date: 08/01/16 Status: Completedmethotrexate 2.5 mg oral tablet 8 tab(s), Oral, q7days, # 104 tab(s), 0 Refill(s), Start Date: 01/08/16 9:29:23 CDT, Pharmacy: [facility] Start Date: 01/08/16 Stop Date: 04/11/16 Status: Completedmethotrexate 2.5 mg oral tablet 6 tab(s), Oral, q7days, X 120 days, # 108 tab(s), 0 Refill(s), Start Date: 09/07 11:26:00 EDUCATIONAL MANAGER, Pharmacy: [place] Start Date: 09/07/15 Stop Date: 09/28/15 Status: Completedmethotrexate 2.5 mg oral tablet 8 tab(s), Oral, q7days, # 104 tab(s), 1 Refill(s), Start Date: 08/01/16 14:05: 09 EDUCATIONAL MANAGER, Pharmacy: [facility] Start Date: 08/01/16 Stop Date: 10/11/16 Status: Completedmethotrexate 2.5 mg oral tablet 8 tab(s), Oral, q7days, # 16 tab(s), 0 Refill(s), Start Date: 01/07/16 15:09:19 CDT, Pharmacy: [place] Start Date: 01/07/16 Stop Date: 01/20/16 Status: Completedmethotrexate 2.5 mg oral tablet 6 tab(s), Oral, q7days, X 90 days, # 78 tab(s), 0 Refill(s), Start Date: 16:04:46 EDUCATIONAL MANAGER, Pharmacy: [place] Start Date: 09/28/15 Stop Date: 10/08/15 Status: Completedmethotrexate 2.5 mg oral tablet 8 tab(s), Oral, q7days, # 104 tab(s), 1 Refill(s), Start Date: 10/11/16 14:18: 36 EDUCATIONAL MANAGER, Pharmacy: [facility] Start Date: 10/11/16 Status: Orderedmethotrexate 2.5 mg oral tablet 8 tab(s), Oral, q7days, # 104 tab(s), 0 Refill(s), Start Date: 01/07/16 15:21: 00 CDT, Pharmacy: [facility] Start Date: 01/07/16 Stop Date: 01/08/16 Status: Completedmethotrexate 2.5 mg oral tablet 8 tab(s), Oral, q7days, X 90 days, # 104 tab(s), 0 Refill(s), Start Date: 15:34:00 EDUCATIONAL MANAGER, Pharmacy: [place] Start Date: 10/08/15 Stop Date: 01/07/16 Status: Completedmultivitamin 1 tab(s), Oral, Daily, 0 Refill(s), Start Date: 08/03/15 13:22:00 EDUCATIONAL MANAGER Start Date: 08/03/15 Status: Orderedomega-3 polyunsaturated fatty acids oral capsule 1 cap(s), Oral, Daily, # 100 cap(s), 0 Refill(s), Start Date: 08/03/15 13:22:00 EDUCATIONAL MANAGER Start Date: 08/03/15 Stop Date: 09/07/15 Status: CompletedPlaquenil Sulfate 200 mg oral tablet 1 tab(s), Oral, BID, # 60 tab(s), 1 Refill(s), Start Date: 07/11/16 14:38:00 EDUCATIONAL MANAGER , Pharmacy: [place] Start Date: 07/11/16 Stop Date: 07/21/16 Status: CompletedPlaquenil Sulfate 200 mg oral tablet 1 tab(s), Oral, BID, # 180 tab(s), 0 Refill(s), Start Date: 10/11/16 14:18:38 EDUCATIONAL MANAGER, Pharmacy: [facility] Start Date: 10/11/16 Status: OrderedPlaquenil Sulfate 200 mg oral tablet 1 tab(s), Oral, BID, # 180 tab(s), 0 Refill(s), Start Date: 07/21/16 9:00:34 EDUCATIONAL MANAGER , Pharmacy: [facility] Start Date: 07/21/16 Stop Date: 10/11/16 Status: CompletedpredniSONE 10 mg oral tablet 1 tab(s), Oral, Daily, # 60 tab(s), 0 Refill(s), Start Date: 08/03/15 11:18:00 EDUCATIONAL MANAGER, Pharmacy: [place] Start Date: 08/03/15 Stop Date: 09/07/15 Status: CompletedpredniSONE 2.5 mg oral tablet 1 tab(s), Oral, Daily, 0 Refill(s), Start Date: 10/11/16 13:48:00 EDUCATIONAL MANAGER Start Date: 10/11/16 Stop Date: 10/11/16 Status: DiscontinuedpredniSONE 5 mg oral tablet 1 tab(s), Oral, Daily, # 90 tab(s), 1 Refill(s), Start Date: 04/11/16 16:03:53 CDT, Pharmacy: [facility] Start Date: 04/11/16 Stop Date: 07/11/16 Status: CompletedpredniSONE 5 mg oral tablet 1 tab(s), Oral, Daily, # 30 tab(s), 1 Refill(s), Start Date: 09/07/15 11:27:00 EDUCATIONAL MANAGER, Pharmacy: [place] Start Date: 09/07/15 Stop Date: 10/08/15 Status: CompletedpredniSONE 5 mg oral tablet 1 tab(s), Oral, Daily, # 30 tab(s), 1 Refill(s), Start Date: 01/20/16 15:34:57 CDT, Pharmacy: [place] Start Date: 01/20/16 Stop Date: 04/11/16 Status: CompletedpredniSONE 5 mg oral tablet 1 tab(s), Oral, Daily, # 14 tab(s), 1 Refill(s), Start Date: 01/07/16 15:41:38 CDT, Pharmacy: [place] Start Date: 01/07/16 Stop Date: 01/20/16 Status: CompletedpredniSONE 5 mg oral tablet 1 tab(s), Oral, Daily, # 30 tab(s), 1 Refill(s), Start Date: 10/08/15 15:34:27 EDUCATIONAL MANAGER, Pharmacy: [place] Start Date: 10/08/15 Stop Date: 01/07/16 Status: CompletedTriCor 145 mg oral tablet 1 tab(s), Oral, Daily, # 30 tab(s), 0 Refill(s), Start Date: 08/03/15 13:21:00 EDUCATIONAL MANAGER Start Date: 08/03/15 Status: OrderedViagra 100 mg oral tablet 1 tab(s), Oral, Daily, PRN for erectile dysfunction, 0 Refill(s), Start Date: 13:47:00 EDUCATIONAL MANAGER Start Date: 10/11/16 Status: Ordered Results Patient Viewable Results Most recent to oldest [Reference Range]: 1 WBC [4.8-10.8 thou/mm3] 3.8 thou/mm3 *LOW* (10/11/16 2:15 PM) RBC [4.60-6.00 Mil/mm3] 4.52 Mil/mm3 *LOW* (10/11/16 2:15 PM) Hgb [14.0-18.0 g/dL] 13.3 g/dL *LOW* (10/11/16 2:15 PM) Hct [42.0-52.0 %] 39.8 % *LOW* (10/11/16 2:15 PM) MCV [80.0-94.0 fL] 88.1 fL (10/11/16 2:15 PM) MCH [25.0-38.0 pg/cell] 29.4 pg/cell (10/11/16 2:15 PM) MCHC [31.0-37.0 g/dL] 33.4 g/dL (10/11/16 2:15 PM) RDW [1.0-48.0 fL] 46.0 fL (10/11/16 2:15 PM) Platelet [130-400 thou/mm3] 183 thou/mm3 (10/11/16 2:15 PM) Neutrophils % Auto [50.0-75.0 %] 62.2 % (10/11/16 2:15 PM) Immature Granulocyte Auto [0.1-2.0 %] 0.5 % (10/11/16 2:15 PM) Lymphocytes % Auto [15.0-41.0 %] 25.3 % (10/11/16 2:15 PM) Monocytes % Auto [2.0-10.0 %] 9.1 % (10/11/16 2:15 PM) Eosinophils % Auto [0.0-6.0 %] 2.6 % (10/11/16 2:15 PM) Basophil % Auto [0.0-1.0 %] 0.3 % (10/11/16 2:15 PM) Neutrophils Absolute [1.5-5.9 thou/mm3] 2.4 thou/mm3 (10/11/16 2:15 PM) Immature Gran Absolute [0.01-0.03 thou/mm3] 0.02 thou/mm3 (10/11/16 2:15 PM) Lymphocytes Absolute [1.5-4.0 thou/mm3] 1.0 thou/mm3 *LOW* (10/11/16 2:15 PM) Monocytes Absolute [0.0-0.9 thou/mm3] 0.4 thou/mm3 (10/11/16 2:15 PM) Eosinophil Absolute [0.0-0.7 thou/mm3] 0.1 thou/mm3 (10/11/16 2:15 PM) Basophil Absolute [0.0-0.2 thou/mm3] 0.0 thou/mm3 (10/11/16 2:15 PM) Sed Rate [0-20 mm/hr] 14 mm/hr (10/11/16 2:15 PM) Creatinine Lvl [0.50-1.20 mg/dL] 1.16 mg/dL (10/11/16 2:15 PM) eGFR AA [>=60] >60 (10/11/16 2:15 PM) eGFR JYOTI [>=60] >60 (10/11/16 2:15 PM) Albumin Lvl [3.5-5.2 g/dL] 4.6 g/dL (10/11/16 2:15 PM) AST [0-39 unit/L] 25 unit/L (10/11/16 2:15 PM) ALT [0-40 unit/L] 29 unit/L (10/11/16 2:15 PM) C Reactive Protein [0.0-0.4 mg/dL] 0.5 mg/dL *HI* (10/11/16 2:15 PM) Estimated Creatinine Clearance 84.95 mL/min (10/11/16 3:18 PM) Immunizations No data available for this section Procedures No data available for this section Social History No data available for this section Assessment and Plan No data available for this section
--- OUTSIDE RECORDS SUMMARY | 2017-03-06 08:59 | XMS REPORT | Summary of Care ---
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 Start Date: 08/03/15 Status: Orderedfolic acid 1 mg oral tablet 1 tab(s), Oral, Daily, # 14 tab(s), 1 Refill(s), Start Date: 01/20/16 15:36:26 CDT, Pharmacy: [place], [place] Start Date: 01/20/16 Status: Orderedfolic acid 1 mg oral tablet 1 tab(s), Oral, Daily, # 90 tab(s), 3 Refill(s), Start Date: 01/08/16 9:29:44 CDT, Pharmacy: [facility] Start Date: 01/08/16 Status: Orderedfolic acid 1 mg oral tablet 1 tab(s), Oral, Daily, # 30 tab(s), 11 Refill(s), Start Date: 09/07/15 11:26:00 LEGAL ASSISTANT, Pharmacy: [place], [place] Start Date: 09/07/15 Stop Date: 01/07/16 Status: Completedfolic acid 1 mg oral tablet 1 tab(s), Oral, Daily, # 14 tab(s), 0 Refill(s), Start Date: 01/07/16 15:08:49 CDT, Pharmacy: [facility] [place], [place] Start Date: 01/07/16 Stop Date: 01/20/16 Status: Completedfolic acid 1 mg oral tablet 1 tab(s), Oral, Daily, # 90 tab(s), 3 Refill(s), Start Date: 01/07/16 15:20:00 CDT, Pharmacy: [facility] Start Date: 01/07/16 Stop Date: 01/08/16 Status: CompletedHYDROcodone-acetaminophen 7.5 mg-325 mg oral tablet 1 tab(s), Oral, q4hr, PRN for pain, 0 Refill(s), Start Date: 08/03/15 13:22:00 LEGAL ASSISTANT Start Date: 08/03/15 Status: Orderedlevothyroxine 200 mcg (0.2 mg) oral tablet 1 tab(s), Oral, Daily, # 30 tab(s), 0 Refill(s), Start Date: 08/03/15 13:21:00 LEGAL ASSISTANT Start Date: 08/03/15 Status: Orderedlevothyroxine 25 mcg (0.025 mg) oral tablet 1 tab(s), Oral, Daily, # 30 tab(s), 0 Refill(s), Start Date: 08/03/15 13:21:00 LEGAL ASSISTANT Start Date: 08/03/15 Status: Orderedlisinopril 20 mg oral tablet 1 tab(s), Oral, Daily, # 90 tab(s), 0 Refill(s), Start Date: 08/03/15 13:21:00 LEGAL ASSISTANT Start Date: 08/03/15 Status: Orderedlovastatin 10 mg oral tablet 1 tab(s), Oral, Daily, # 90 tab(s), 0 Refill(s), Start Date: 08/03/15 13:23:00 LEGAL ASSISTANT Start Date: 08/03/15 Status: Orderedmethotrexate 2.5 mg oral tablet 8 tab(s), Oral, q7days, # 16 tab(s), 1 Refill(s), Start Date: 01/20/16 15:36:05 CDT, Pharmacy: [facility], [place] Start Date: 01/20/16 Status: Orderedmethotrexate 2.5 mg oral tablet 8 tab(s), Oral, q7days, # 104 tab(s), 0 Refill(s), Start Date: 01/08/16 9:29:23 CDT, Pharmacy: [facility] Start Date: 01/08/16 Status: Orderedmethotrexate 2.5 mg oral tablet 6 tab(s), Oral, q7days, X 120 days, # 108 tab(s), 0 Refill(s), Start Date: 09/07 11:26:00 LEGAL ASSISTANT, Pharmacy: [facility], [place] Start Date: 09/07/15 Stop Date: 09/28/15 Status: Completedmethotrexate 2.5 mg oral tablet 8 tab(s), Oral, q7days, # 16 tab(s), 0 Refill(s), Start Date: 01/07/16 15:09:19 CDT, Pharmacy: [facility], [place] Start Date: 01/07/16 Stop Date: 01/20/16 Status: Completedmethotrexate 2.5 mg oral tablet 6 tab(s), Oral, q7days, X 90 days, # 78 tab(s), 0 Refill(s), Start Date: 16:04:46 LEGAL ASSISTANT, Pharmacy: [facility], [place] Start Date: 09/28/15 Stop Date: 10/08/15 Status: Completedmethotrexate 2.5 mg oral tablet 8 tab(s), Oral, q7days, # 104 tab(s), 0 Refill(s), Start Date: 01/07/16 15:21: 00 CDT, Pharmacy: [facility] Start Date: 01/07/16 Stop Date: 01/08/16 Status: Completedmethotrexate 2.5 mg oral tablet 8 tab(s), Oral, q7days, X 90 days, # 104 tab(s), 0 Refill(s), Start Date: 15:34:00 LEGAL ASSISTANT, Pharmacy: [facility], [place] Start Date: 10/08/15 Stop Date: 01/07/16 Status: Completedmultivitamin 1 tab(s), Oral, Daily, 0 Refill(s), Start Date: 08/03/15 13:22:00 LEGAL ASSISTANT Start Date: 08/03/15 Status: Orderedomega-3 polyunsaturated fatty acids oral capsule 1 cap(s), Oral, Daily, # 100 cap(s), 0 Refill(s), Start Date: 08/03/15 13:22:00 LEGAL ASSISTANT Start Date: 08/03/15 Stop Date: 09/07/15 Status: CompletedpredniSONE 10 mg oral tablet 1 tab(s), Oral, Daily, # 60 tab(s), 0 Refill(s), Start Date: 08/03/15 11:18:00 LEGAL ASSISTANT, Pharmacy: [place], [place] Start Date: 08/03/15 Stop Date: 09/07/15 Status: CompletedpredniSONE 5 mg oral tablet 1 tab(s), Oral, Daily, # 30 tab(s), 1 Refill(s), Start Date: 09/07/15 11:27:00 LEGAL ASSISTANT, Pharmacy: [place], [place] Start Date: 09/07/15 Stop Date: 10/08/15 Status: CompletedpredniSONE 5 mg oral tablet 1 tab(s), Oral, Daily, # 30 tab(s), 1 Refill(s), Start Date: 01/20/16 15:34:57 CDT, Pharmacy: [facility], [place] Start Date: 01/20/16 Status: OrderedpredniSONE 5 mg oral tablet 1 tab(s), Oral, Daily, # 14 tab(s), 1 Refill(s), Start Date: 01/07/16 15:41:38 CDT, Pharmacy: [place], [place] Start Date: 01/07/16 Stop Date: 01/20/16 Status: CompletedpredniSONE 5 mg oral tablet 1 tab(s), Oral, Daily, # 30 tab(s), 1 Refill(s), Start Date: 10/08/15 15:34:27 LEGAL ASSISTANT, Pharmacy: [place], [place] Start Date: 10/08/15 Stop Date: 01/07/16 Status: CompletedTriCor 145 mg oral tablet 1 tab(s), Oral, Daily, # 30 tab(s), 0 Refill(s), Start Date: 08/03/15 13:21:00 LEGAL ASSISTANT Start Date: 08/03/15 Status: Ordered Results Patient [...]
--- OUTSIDE RECORDS SUMMARY | 2017-03-06 09:00 | XMS REPORT | Summary of Care ---
:1950 Author Organization [facility] Address [address] [place] [address] Care Team Providers Name Role Phone Orion Delvalle Primary Care Physician Encounter Date(s): 12/29/16 - 12/29/16 [facility] [address], [address] [facility] [place], [place] [address] Discharge Diagnosis: Arthritis, rheumatoid Discharge Disposition: Discharged to Home or Self Care Attending Physician: Paulo Boone MD Referring Physician: Orion Delvalle MD Vital Signs Most recent to oldest [Reference Range]: 1 Peripheral Pulse Rate [60-100 bpm] 82 bpm (12/29/16 2:22 PM) Blood Pressure [90-130/60-90 mmHg] 149/77mmHg *HI* (12/29/16 2:22 PM) Mean Arterial Pressure, Cuff 101 mmHg (12/29/16 2:22 PM) Most recent to oldest [Reference Range]: 1 Height/Length Measured 182.88 cm (12/29/16 2:22 PM) Weight Dosing 124.30 kg1 (12/29/16 2:23 PM) Weight Measured 124.3 kg (12/29/16 2:22 PM) BSA Measured 2.44 m2 (12/29/16 2:22 PM) Body Mass Index Measured 37.17 kg/m2 (12/29/16 2:22 PM) 1Result Comment: This result was because the dosing weight was either not entered or it is>30 days old. This result is based off: Weight Measured December 29, 2016 14:22:00 CDT by Charity Acosta CMA Problem List No data available for this section Allergies, Adverse Reactions, Alerts No Known Allergies Medications aspirin 81 mg oral tablet 1 tab(s), Oral, Daily, # 90 tab(s), 0 Refill(s), Start Date: 08/03/15 13:22:00 [employer] Start Date: 08/03/15 Status: Orderedfolic acid 1 mg oral tablet 1 tab(s), Oral, Daily, # 14 tab(s), 1 Refill(s), Start Date: 01/20/16 15:36:26 CDT, Pharmacy: [place], [place] Start Date: 01/20/16 Stop Date: 04/11/16 Status: Completedfolic acid 1 mg oral tablet 1 tab(s), Oral, Daily, # 90 tab(s), 3 Refill(s), Start Date: 04/11/16 16:03:55 CDT, Pharmacy: [facility] Start Date: 04/11/16 Stop Date: 08/01/16 Status: Completedfolic acid 1 mg oral tablet 1 tab(s), Oral, Daily, # 90 tab(s), 3 Refill(s), Start Date: 01/08/16 9:29:44 CDT, Pharmacy: [facility] Start Date: 01/08/16 Stop Date: 04/11/16 Status: Completedfolic acid 1 mg oral tablet 1 tab(s), Oral, Daily, # 30 tab(s), 11 Refill(s), Start Date: 09/07/15 11:26:00 [employer], Pharmacy: [place], [place] Start Date: 09/07/15 Stop Date: 01/07/16 Status: Completedfolic acid 1 mg oral tablet 2 tab(s), Oral, Daily, Increase, # 180 tab(s), 3 Refill(s), Start Date: 15:49:39 [employer], Pharmacy: [facility] Special Instructions: Increase Start Date: 10/11/16 Stop Date: 12/29/16 Status: Completedfolic acid 1 mg oral tablet 1 tab(s), Oral, Daily, # 90 tab(s), 3 Refill(s), Start Date: 08/01/16 14:05:09 [employer], Pharmacy: [facility] Start Date: 08/01/16 Stop Date: 10/11/16 Status: Completedfolic acid 1 mg oral tablet 1 tab(s), Oral, Daily, # 14 tab(s), 0 Refill(s), Start Date: 01/07/16 15:08:49 CDT, Pharmacy: [facility] [place] [place] Start Date: 01/07/16 Stop Date: 01/20/16 Status: Completedfolic acid 1 mg oral tablet 2 tab(s), Oral, Daily, Increase, # 180 tab(s), 3 Refill(s), Start Date: 14:42:07 CDT, Pharmacy: [facility] Special Instructions: Increase Start Date: 12/29/16 Status: Orderedfolic acid 1 mg oral tablet 1 tab(s), Oral, Daily, # 90 tab(s), 3 Refill(s), Start Date: 10/11/16 14:18:37 [employer], Pharmacy: [facility] Start Date: 10/11/16 Stop Date: 10/11/16 Status: Completedfolic acid 1 mg oral tablet 1 tab(s), Oral, Daily, # 90 tab(s), 3 Refill(s), Start Date: 01/07/16 15:20:00 CDT, Pharmacy: [facility] Start Date: 01/07/16 Stop Date: 01/08/16 Status: CompletedHYDROcodone-acetaminophen 7.5 mg-325 mg oral tablet 1 tab(s), Oral, q4hr, PRN for pain, 0 Refill(s), Start Date: 08/03/15 13:22:00 [employer] Start Date: 08/03/15 Stop Date: 12/29/16 Status: Completedlevothyroxine 200 mcg (0.2 mg) oral tablet 1 tab(s), Oral, Daily, # 30 tab(s), 0 Refill(s), Start Date: 08/03/15 13:21:00 [employer] Start Date: 08/03/15 Status: Orderedlevothyroxine 25 mcg (0.025 mg) oral tablet 1 tab(s), Oral, Daily, # 30 tab(s), 0 Refill(s), Start Date: 08/03/15 13:21:00 [employer] Start Date: 08/03/15 Stop Date: 12/29/16 Status: Completedlisinopril 20 mg oral tablet 1 tab(s), Oral, Daily, # 90 tab(s), 0 Refill(s), Start Date: 08/03/15 13:21:00 [employer] Start Date: 08/03/15 Status: Orderedlovastatin 10 mg oral tablet 1 tab(s), Oral, Daily, # 90 tab(s), 0 Refill(s), Start Date: 08/03/15 13:23:00 [employer] Start Date: 08/03/15 Status: Orderedmethotrexate 2.5 mg oral tablet 8 tab(s), Oral, q7days, # 16 tab(s), 1 Refill(s), Start Date: 01/20/16 15:36:05 CDT, Pharmacy: [place], [place] Start Date: 01/20/16 Stop Date: 04/11/16 Status: Completedmethotrexate 2.5 mg oral tablet 8 tab(s), Oral, q7days, # 104 tab(s), 1 Refill(s), Start Date: 04/11/16 16:03: 54 CDT, Pharmacy: [facility] Start Date: 04/11/16 Stop Date: 08/01/16 Status: Completedmethotrexate 2.5 mg oral tablet 8 tab(s), Oral, q7days, # 104 tab(s), 0 Refill(s), Start Date: 01/08/16 9:29:23 CDT, Pharmacy: [facility] Start Date: 01/08/16 Stop Date: 04/11/16 Status: Completedmethotrexate 2.5 mg oral tablet 6 tab(s), Oral, q7days, X 120 days, # 108 tab(s), 0 Refill(s), Start Date: 09/07 11:26:00 [employer], Pharmacy: [place], [place] Start Date: 09/07/15 Stop Date: 09/28/15 Status: Completedmethotrexate 2.5 mg oral tablet 8 tab(s), Oral, q7days, # 104 tab(s), 1 Refill(s), Start Date: 08/01/16 14:05: 09 [employer], Pharmacy: [facility] Start Date: 08/01/16 Stop Date: 10/11/16 Status: Completedmethotrexate 2.5 mg oral tablet 8 tab(s), Oral, q7days, # 16 tab(s), 0 Refill(s), Start Date: 01/07/16 15:09:19 CDT, Pharmacy: [place], [place] Start Date: 01/07/16 Stop Date: 01/20/16 Status: Completedmethotrexate 2.5 mg oral tablet 6 tab(s), Oral, q7days, X 90 days, # 78 tab(s), 0 Refill(s), Start Date: 16:04:46 [employer], Pharmacy: [place] Start Date: 09/28/15 Stop Date: 10/08/15 Status: Completedmethotrexate 2.5 mg oral tablet 8 tab(s), Oral, q7days, # 104 tab(s), 1 Refill(s), Start Date: 12/29/16 14:42: 06 CDT, Pharmacy: [facility] Start Date: 12/29/16 Status: Orderedmethotrexate 2.5 mg oral tablet 8 tab(s), Oral, q7days, # 104 tab(s), 1 Refill(s), Start Date: 10/11/16 14:18: 36 [employer], Pharmacy: [facility] Start Date: 10/11/16 Stop Date: 12/29/16 Status: Completedmethotrexate 2.5 mg oral tablet 8 tab(s), Oral, q7days, # 104 tab(s), 0 Refill(s), Start Date: 01/07/16 15:21: 00 CDT, Pharmacy: [facility] Start Date: 01/07/16 Stop Date: 01/08/16 Status: Completedmethotrexate 2.5 mg oral tablet 8 tab(s), Oral, q7days, X 90 days, # 104 tab(s), 0 Refill(s), Start Date: 15:34:00 [employer], Pharmacy: [place] Start Date: 10/08/15 Stop Date: 01/07/16 Status: Completedmultivitamin 1 tab(s), Oral, Daily, 0 Refill(s), Start Date: 08/03/15 13:22:00 [employer] Start Date: 08/03/15 Stop Date: 12/29/16 Status: Completedomega-3 polyunsaturated fatty acids oral capsule 1 cap(s), Oral, Daily, # 100 cap(s), 0 Refill(s), Start Date: 08/03/15 13:22:00 [employer] Start Date: 08/03/15 Stop Date: 09/07/15 Status: CompletedPlaquenil Sulfate 200 mg oral tablet 1 tab(s), Oral, BID, # 60 tab(s), 1 Refill(s), Start Date: 07/11/16 14:38:00 [employer] , Pharmacy: [place] Start Date: 07/11/16 Stop Date: 07/21/16 Status: CompletedPlaquenil Sulfate 200 mg oral tablet 1 tab(s), Oral, BID, # 180 tab(s), 0 Refill(s), Start Date: 12/29/16 14:42:07 CDT, Pharmacy: [facility] Start Date: 12/29/16 Status: OrderedPlaquenil Sulfate 200 mg oral tablet 1 tab(s), Oral, BID, # 180 tab(s), 0 Refill(s), Start Date: 10/11/16 14:18:38 [employer], Pharmacy: [facility] Start Date: 10/11/16 Stop Date: 12/29/16 Status: CompletedPlaquenil Sulfate 200 mg oral tablet 1 tab(s), Oral, BID, # 180 tab(s), 0 Refill(s), Start Date: 07/21/16 9:00:34 [employer] , Pharmacy: [facility] Start Date: 07/21/16 Stop Date: 10/11/16 Status: CompletedpredniSONE 10 mg oral tablet 1 tab(s), Oral, Daily, # 60 tab(s), 0 Refill(s), Start Date: 08/03/15 11:18:00 [employer], Pharmacy: [place] Start Date: 08/03/15 Stop Date: 09/07/15 Status: CompletedpredniSONE 2.5 mg oral tablet 1 tab(s), Oral, Daily, 0 Refill(s), Start Date: 10/11/16 13:48:00 [employer] Start Date: 10/11/16 Stop Date: 10/11/16 Status: DiscontinuedpredniSONE 2.5 mg oral tablet See Instructions, Take 2 tabs daily for 30 days, then 1 tab daily thereafter., # 120 tab(s), 0 Refill(s), Start Date: 12/29/16 14:42:00 CDT, Pharmacy: [facility] Special Instructions: Take 2 tabs daily for 30 days, then 1 tab daily thereafter. Start Date: 12/29/16 Status: OrderedpredniSONE 5 mg oral tablet 1 tab(s), Oral, Daily, # 90 tab(s), 1 Refill(s), Start Date: 04/11/16 16:03:53 CDT, Pharmacy: [facility] Start Date: 04/11/16 Stop Date: 07/11/16 Status: CompletedpredniSONE 5 mg oral tablet 1 tab(s), Oral, Daily, # 30 tab(s), 1 Refill(s), Start Date: 09/07/15 11:27:00 [employer], Pharmacy: [place] Start Date: 09/07/15 Stop Date: 10/08/15 Status: CompletedpredniSONE 5 mg oral tablet 1 tab(s), Oral, Daily, # 30 tab(s), 1 Refill(s), Start Date: 01/20/16 15:34:57 CDT, Pharmacy: [place] Start Date: 01/20/16 Stop Date: 04/11/16 Status: CompletedpredniSONE 5 mg oral tablet 1 tab(s), Oral, Daily, # 14 tab(s), 1 Refill(s), Start Date: 01/07/16 15:41:38 CDT, Pharmacy: [place] Start Date: 01/07/16 Stop Date: 01/20/16 Status: CompletedpredniSONE 5 mg oral tablet 1 tab(s), Oral, Daily, # 30 tab(s), 1 Refill(s), Start Date: 10/08/15 15:34:27 [employer], Pharmacy: [facility] [place] [place] Start Date: 10/08/15 Stop Date: 01/07/16 Status: CompletedTriCor 145 mg oral tablet 1 tab(s), Oral, Daily, # 30 tab(s), 0 Refill(s), Start Date: 08/03/15 13:21:00 [employer] Start Date: 08/03/15 Status: OrderedViagra 100 mg oral tablet 1 tab(s), Oral, Daily, PRN for erectile dysfunction, 0 Refill(s), Start Date: 13:47:00 [employer] Start Date: 10/11/16 Status: Ordered Results No data available for this section Immunizations No data available for this section Procedures No data available for this section Social History No data available for this section Assessment and Plan No data available for this section
--- OUTSIDE RECORDS SUMMARY | 2017-03-06 09:00 | XMS REPORT | Summary of Care ---
:1950 Author Organization [facility] Address [address] [place] [address] Care Team Providers Name Role Phone MookOrion Primary Care Physician Encounter Date(s): 10/11/16 - 10/11/16 [facility] [place], [address] [place], [place] [address] Discharge Disposition: 01 Discharged to Home or Self Care Attending Physician: Paulo Boone MD Referring Physician: Unknown Physician Vital Signs Most recent to oldest [Reference Range]: 1 Peripheral Pulse Rate [60-100 bpm] 96 bpm (10/11/16 1:45 PM) Blood Pressure [90-130/60-90 mmHg] 182/77mmHg *>HHI* (10/11/16 1:45 PM) Mean Arterial Pressure, Cuff 112 mmHg (10/11/16 1:45 PM) Most recent to oldest [Reference Range]: 1 Height/Length Measured 182.88 cm (10/11/16 1:45 PM) Weight Dosing 123.30 kg1 (10/11/16 1:48 PM) Weight Measured 123.3 kg (10/11/16 1:45 PM) BSA Measured 2.43 m2 (10/11/16 1:45 PM) Body Mass Index Measured 36.87 kg/m2 (10/11/16 1:45 PM) 1Result Comment: This result was because the dosing weight was either not entered or it is>30 days old. This result is based off: Weight Measured October 11, 2016 13:45:00 [employer] by Charity Acosta CMA Problem List No data available for this section Allergies, Adverse Reactions, Alerts No Known Allergies Medications aspirin 81 mg oral tablet 1 tab(s), Oral, Daily, # 90 tab(s), 0 Refill(s), Start Date: 08/03/15 13:22:00 [employer] Start Date: 08/03/15 Status: Orderedfolic acid 1 mg oral tablet 1 tab(s), Oral, Daily, # 14 tab(s), 1 Refill(s), Start Date: 01/20/16 15:36:26 CDT, Pharmacy: [place], [place] Start Date: 01/20/16 Stop Date: 04/11/16 Status: Completedfolic acid 1 mg oral tablet 1 tab(s), Oral, Daily, # 90 tab(s), 3 Refill(s), Start Date: 04/11/16 16:03:55 CDT, Pharmacy: [facility] Start Date: 04/11/16 Stop Date: 08/01/16 Status: Completedfolic acid 1 mg oral tablet 1 tab(s), Oral, Daily, # 90 tab(s), 3 Refill(s), Start Date: 01/08/16 9:29:44 CDT, Pharmacy: [facility] Start Date: 01/08/16 Stop Date: 04/11/16 Status: Completedfolic acid 1 mg oral tablet 1 tab(s), Oral, Daily, # 30 tab(s), 11 Refill(s), Start Date: 09/07/15 11:26:00 [employer], Pharmacy: [place], [place] Start Date: 09/07/15 Stop Date: 01/07/16 Status: Completedfolic acid 1 mg oral tablet 2 tab(s), Oral, Daily, Increase, # 180 tab(s), 3 Refill(s), Start Date: 15:49:39 [employer], Pharmacy: [facility] Special Instructions: Increase Start Date: 10/11/16 Status: Orderedfolic acid 1 mg oral tablet 1 tab(s), Oral, Daily, # 90 tab(s), 3 Refill(s), Start Date: 08/01/16 14:05:09 [employer], Pharmacy: [facility] Start Date: 08/01/16 Stop Date: 10/11/16 Status: Completedfolic acid 1 mg oral tablet 1 tab(s), Oral, Daily, # 14 tab(s), 0 Refill(s), Start Date: 01/07/16 15:08:49 CDT, Pharmacy: [facility] [place], [place] Start Date: 01/07/16 Stop Date: 01/20/16 Status: Completedfolic acid 1 mg oral tablet 1 tab(s), Oral, Daily, # 90 tab(s), 3 Refill(s), Start Date: 10/11/16 14:18:37 [employer], Pharmacy: [facility] Start Date: 10/11/16 Stop Date: 10/11/16 Status: Completedfolic acid 1 mg oral tablet 1 tab(s), Oral, Daily, # 90 tab(s), 3 Refill(s), Start Date: 01/07/16 15:20:00 CDT, Pharmacy: [facility] Start Date: 01/07/16 Stop Date: 01/08/16 Status: CompletedHYDROcodone-acetaminophen 7.5 mg-325 mg oral tablet 1 tab(s), Oral, q4hr, PRN for pain, 0 Refill(s), Start Date: 08/03/15 13:22:00 [employer] Start Date: 08/03/15 Status: Orderedlevothyroxine 200 mcg (0.2 mg) oral tablet 1 tab(s), Oral, Daily, # 30 tab(s), 0 Refill(s), Start Date: 08/03/15 13:21:00 [employer] Start Date: 08/03/15 Status: Orderedlevothyroxine 25 mcg (0.025 mg) oral tablet 1 tab(s), Oral, Daily, # 30 tab(s), 0 Refill(s), Start Date: 08/03/15 13:21:00 [employer] Start Date: 08/03/15 Status: Orderedlisinopril 20 mg oral tablet 1 tab(s), Oral, Daily, # 90 tab(s), 0 Refill(s), Start Date: 08/03/15 13:21:00 [employer] Start Date: 08/03/15 Status: Orderedlovastatin 10 mg oral tablet 1 tab(s), Oral, Daily, # 90 tab(s), 0 Refill(s), Start Date: 08/03/15 13:23:00 [employer] Start Date: 08/03/15 Status: Orderedmethotrexate 2.5 mg oral tablet 8 tab(s), Oral, q7days, # 16 tab(s), 1 Refill(s), Start Date: 01/20/16 15:36:05 CDT, Pharmacy: [place], [place] Start Date: 01/20/16 Stop Date: 04/11/16 Status: Completedmethotrexate 2.5 mg oral tablet 8 tab(s), Oral, q7days, # 104 tab(s), 1 Refill(s), Start Date: 04/11/16 16:03: 54 CDT, Pharmacy: [facility] Start Date: 04/11/16 Stop Date: 08/01/16 Status: Completedmethotrexate 2.5 mg oral tablet 8 tab(s), Oral, q7days, # 104 tab(s), 0 Refill(s), Start Date: 01/08/16 9:29:23 CDT, Pharmacy: [facility] Start Date: 01/08/16 Stop Date: 04/11/16 Status: Completedmethotrexate 2.5 mg oral tablet 6 tab(s), Oral, q7days, X 120 days, # 108 tab(s), 0 Refill(s), Start Date: 09/07 11:26:00 [employer], Pharmacy: [place], [place] Start Date: 09/07/15 Stop Date: 09/28/15 Status: Completedmethotrexate 2.5 mg oral tablet 8 tab(s), Oral, q7days, # 104 tab(s), 1 Refill(s), Start Date: 08/01/16 14:05: 09 [employer], Pharmacy: [facility] Start Date: 08/01/16 Stop Date: 10/11/16 Status: Completedmethotrexate 2.5 mg oral tablet 8 tab(s), Oral, q7days, # 16 tab(s), 0 Refill(s), Start Date: 01/07/16 15:09:19 CDT, Pharmacy: [place], [place] Start Date: 01/07/16 Stop Date: 01/20/16 Status: Completedmethotrexate 2.5 mg oral tablet 6 tab(s), Oral, q7days, X 90 days, # 78 tab(s), 0 Refill(s), Start Date: 16:04:46 [employer], Pharmacy: [place], [place] Start Date: 09/28/15 Stop Date: 10/08/15 Status: Completedmethotrexate 2.5 mg oral tablet 8 tab(s), Oral, q7days, # 104 tab(s), 1 Refill(s), Start Date: 10/11/16 14:18: 36 [employer], Pharmacy: [facility] Start Date: 10/11/16 Status: Orderedmethotrexate 2.5 mg oral tablet 8 tab(s), Oral, q7days, # 104 tab(s), 0 Refill(s), Start Date: 01/07/16 15:21: 00 CDT, Pharmacy: [facility] Start Date: 01/07/16 Stop Date: 01/08/16 Status: Completedmethotrexate 2.5 mg oral tablet 8 tab(s), Oral, q7days, X 90 days, # 104 tab(s), 0 Refill(s), Start Date: 15:34:00 [employer], Pharmacy: [place] Start Date: 10/08/15 Stop Date: 01/07/16 Status: Completedmultivitamin 1 tab(s), Oral, Daily, 0 Refill(s), Start Date: 08/03/15 13:22:00 [employer] Start Date: 08/03/15 Status: Orderedomega-3 polyunsaturated fatty acids oral capsule 1 cap(s), Oral, Daily, # 100 cap(s), 0 Refill(s), Start Date: 08/03/15 13:22:00 [employer] Start Date: 08/03/15 Stop Date: 09/07/15 Status: CompletedPlaquenil Sulfate 200 mg oral tablet 1 tab(s), Oral, BID, # 60 tab(s), 1 Refill(s), Start Date: 07/11/16 14:38:00 [employer] , Pharmacy: [place], [place] Start Date: 07/11/16 Stop Date: 07/21/16 Status: CompletedPlaquenil Sulfate 200 mg oral tablet 1 tab(s), Oral, BID, # 180 tab(s), 0 Refill(s), Start Date: 10/11/16 14:18:38 [employer], Pharmacy: [facility] Start Date: 10/11/16 Status: OrderedPlaquenil Sulfate 200 mg oral tablet 1 tab(s), Oral, BID, # 180 tab(s), 0 Refill(s), Start Date: 07/21/16 9:00:34 [employer] , Pharmacy: [facility] Start Date: 07/21/16 Stop Date: 10/11/16 Status: CompletedpredniSONE 10 mg oral tablet 1 tab(s), Oral, Daily, # 60 tab(s), 0 Refill(s), Start Date: 08/03/15 11:18:00 [employer], Pharmacy: [place], [place] Start Date: 08/03/15 Stop Date: 09/07/15 Status: CompletedpredniSONE 2.5 mg oral tablet 1 tab(s), Oral, Daily, 0 Refill(s), Start Date: 10/11/16 13:48:00 [employer] Start Date: 10/11/16 Stop Date: 10/11/16 Status: DiscontinuedpredniSONE 5 mg oral tablet 1 tab(s), Oral, Daily, # 90 tab(s), 1 Refill(s), Start Date: 04/11/16 16:03:53 CDT, Pharmacy: [facility] Start Date: 04/11/16 Stop Date: 07/11/16 Status: CompletedpredniSONE 5 mg oral tablet 1 tab(s), Oral, Daily, # 30 tab(s), 1 Refill(s), Start Date: 09/07/15 11:27:00 [employer], Pharmacy: [place] Start Date: 09/07/15 Stop Date: 10/08/15 Status: CompletedpredniSONE 5 mg oral tablet 1 tab(s), Oral, Daily, # 30 tab(s), 1 Refill(s), Start Date: 01/20/16 15:34:57 CDT, Pharmacy: [place] Start Date: 01/20/16 Stop Date: 04/11/16 Status: CompletedpredniSONE 5 mg oral tablet 1 tab(s), Oral, Daily, # 14 tab(s), 1 Refill(s), Start Date: 01/07/16 15:41:38 CDT, Pharmacy: [place] Start Date: 01/07/16 Stop Date: 01/20/16 Status: CompletedpredniSONE 5 mg oral tablet 1 tab(s), Oral, Daily, # 30 tab(s), 1 Refill(s), Start Date: 10/08/15 15:34:27 [employer], Pharmacy: [place] Start Date: 10/08/15 Stop Date: 01/07/16 Status: CompletedTriCor 145 mg oral tablet 1 tab(s), Oral, Daily, # 30 tab(s), 0 Refill(s), Start Date: 08/03/15 13:21:00 [employer] Start Date: 08/03/15 Status: OrderedViagra 100 mg oral tablet 1 tab(s), Oral, Daily, PRN for erectile dysfunction, 0 Refill(s), Start Date: 13:47:00 [employer] Start Date: 10/11/16 Status: Ordered Results No data available for this section Immunizations No data available for this section Procedures No data available for this section Social History No data available for this section Assessment and Plan No data available for this section
[2017-03-06] MEDS: PHENYLEPHRINE HCL 50 DROP BTL LEFTEYE PRN ×3 (09:38→09:59)
[2017-03-06] MEDS: TROPICAMIDE 150 DROP BTL LEFTEYE PRN ×3 (09:38→09:59)
[2017-03-06 13:36] VITALS: BP 145/88
== END 2017-03-06 08:55 | disposition home or self-care (01) ==
LOC: AMB 08:54
PROVIDERS: ATTEND Ophthalmology
PROC: 08RK3JZ Replacement of Left Lens with Synthetic Substitute, Percutaneous Approach (ICD-10-PCS; principal; 2017-03-06 10:15)
DX: H26.9 Unspecified cataract (principal); I10 Essential (primary) hypertension; E78.5 Hyperlipidemia, unspecified; E03.9 Hypothyroidism, unspecified; I73.9 Peripheral vascular disease, unspecified; M19.042 Primary osteoarthritis, left hand; M19.041 Primary osteoarthritis, right hand; Z87.891 Personal history of nicotine dependence; Z68.37 Body mass index [BMI] 37.0-37.9, adult

== ENCOUNTER 2017-03-20 10:27 | Day surgery (SDC) | payer MEDICARE, BC ==
[~2017-03-20 10:27] MED LIST changes: -CYCLOPENTOLATE HCL 20 DROP BTL LEFTEYE PRN; +CYCLOPENTOLATE HCL 20 DROP BTL RIGHTEYE PRN
[2017-03-20] MEDS: PHENYLEPHRINE HCL 50 DROP BTL RIGHTEYE PRN ×3 (10:48→11:21)
[2017-03-20] MEDS: TROPICAMIDE 150 DROP BTL RIGHTEYE PRN ×3 (10:48→11:21)
[2017-03-20 13:22] VITALS: BP 126/73
== END 2017-03-20 10:28 | disposition home or self-care (01) ==
LOC: AMB 10:27
PROVIDERS: ATTEND Ophthalmology
PROC: 08RJ3JZ Replacement of Right Lens with Synthetic Substitute, Percutaneous Approach (ICD-10-PCS; principal; 2017-03-20 11:45)
DX: H26.8 Other specified cataract (principal); I10 Essential (primary) hypertension; E78.5 Hyperlipidemia, unspecified; E03.9 Hypothyroidism, unspecified; M19.042 Primary osteoarthritis, left hand; M19.041 Primary osteoarthritis, right hand; I73.9 Peripheral vascular disease, unspecified; Z87.891 Personal history of nicotine dependence; Z68.37 Body mass index [BMI] 37.0-37.9, adult